=== PATIENT | female | born 1940 | race Caucasian/White ===

== ENCOUNTER 2021-03-13 12:01 | Inpatient (IN) | payer OTHER ==
[2021-03-13 12:52] LABS: EPITHELIAL CELLS FEW /hpf
[2021-03-13] MEDS ORDERED: LABETALOL HCL 5 MG/1 ML (100MG/20 ML VIAL) IVPUSH ONE (12:53)
[2021-03-13 13:06] LABS: BASO % 0.9 % (0-2.0); EOS % 1.1 % (0-4.5); HEMATOCRIT 38.2 % (32.4-45.2); HEMOGLOBIN 12.9 GM/dl (10.7-15.3); LYMPH % 17.3 % (8-40); MCH 29.6 pg (25.7-33.7); MCHC 33.7 g/dl (32.0-36.0); MEAN CELL VOLUME 88.1 fl (80-96); MEAN PLT VOLUME 9.1 fl (7.5-11.1); MONO % 7.2 % (3.8-10.2); NEUT % 73.5 % (42.8-82.8); PLATELET COUNT 262 K/MM3 (134-434); RBC 4.34 M/mm3 (3.60-5.2); RDW 12.9 % (11.6-15.6); WHITE BLOOD COUNT 5.4 K/mm3 (4.0-10.8)
[2021-03-13 13:13] LABS: ACTIVATED PTT 25.2 SECONDS (25.2-36.5)
[2021-03-13 13:17] LABS: INR 1.14 (0.82-1.09); PROTHROMBIN TIME (PATIENT) 12.7 SEC (10.2-13.0)
[2021-03-13] MEDS ORDERED: LABETALOL HCL 5 MG/1 ML (100MG/20 ML VIAL) ONE (14:15)
[2021-03-13 14:58] LABS: ALBUMIN 4.1 g/dl (3.4-5.0); ALK PHOS 75 U/L (45-117); ANION GAP 14 MMOL/L (8-16); BILIRUBIN,TOTAL 0.9 mg/dl (0.2-1); CHLORIDE 101 mmol/L (98-107); CO2 27 mmol/L (21-32); CREATININE 1.4 mg/dl (0.55-1.3); GLUCOSE,RANDOM 104 mg/dl (74-106); SGOT/AST 20 U/L (15-37); SGPT/ALT 13 U/L (13-61); SODIUM 142 mmol/L (136-145); TOT PROT 7.9 g/dl (6.4-8.2)
[2021-03-13] MEDS ORDERED: FUROSEMIDE 40 MG/4 ML INJECTABLE VIAL IVPUSH ONE (15:25)
[2021-03-13] MEDS ORDERED: FUROSEMIDE 40 MG/4 ML INJECTABLE VIAL ONE (15:31)
[2021-03-13 15:41] LABS: N-TERMINAL BNP 1487.1 pg/ml (5-450)
[2021-03-13] MEDS ORDERED: POTASSIUM CHLORIDE TABS 20 MEQ TABLET.ER (FP) PO ONE ×2 (15:51→16:38)
[2021-03-13 19:24] VITALS: BMI 21.6
[2021-03-14 08:11] LABS: BASO % 0.3 % (0-2.0); HEMATOCRIT 36.6 % (32.4-45.2); MCHC 32.8 g/dl (32.0-36.0); MEAN CELL VOLUME 88.5 fl (80-96); MEAN PLT VOLUME 8.7 fl (7.5-11.1); MONO % 7.9 % (3.8-10.2); NEUT % 74.8 % (42.8-82.8); PLATELET COUNT 263 K/MM3 (134-434); RBC 4.14 M/mm3 (3.60-5.2); RDW 12.9 % (11.6-15.6); WHITE BLOOD COUNT 5.1 K/mm3 (4.0-10.8)
[2021-03-14 08:23] LABS: ALBUMIN 3.6 g/dl (3.4-5.0); BILIRUBIN,TOTAL 0.9 mg/dl (0.2-1); CALCIUM 9.8 mg/dl (8.5-10); CREATININE 1.4 mg/dl (0.55-1.3)
[2021-03-14] MEDS ORDERED: LISINOPRIL 10 MG TABLET PO SCH (10:45)
[2021-03-14] MEDS: POTASSIUM CHLORIDE TABS 20 MEQ TABLET.ER (FP) PO SCH ×2 (10:48→17:13)
[2021-03-14] MEDS ORDERED: METOPROLOL TARTRATE 5 MG/5 ML VIAL IVPUSH PRN (18:00)
[2021-03-14] MEDS: HEPARIN NA (PORCINE) 5,000 UNITS/ML 1ML VIAL SQ SCH (21:36)
[2021-03-15] MEDS: HEPARIN NA (PORCINE) 5,000 UNITS/ML 1ML VIAL SQ SCH ×3 (06:21→21:53)
[2021-03-15 07:58] LABS: BASO % 0.7 % (0-2.0); EOS % 3.5 % (0-4.5); HEMOGLOBIN 12.5 GM/dl (10.7-15.3); LYMPH % 17.3 % (8-40); MCH 30.3 pg (25.7-33.7); MCHC 33.9 g/dl (32.0-36.0); MEAN CELL VOLUME 89.4 fl (80-96); NEUT % 71.5 % (42.8-82.8); PLATELET COUNT 242 K/MM3 (134-434); RBC 4.14 M/mm3 (3.60-5.2); RDW 12.9 % (11.6-15.6); WHITE BLOOD COUNT 5.5 K/mm3 (4.0-10.8)
[2021-03-15 08:02] LABS: ALBUMIN 3.7 g/dl (3.4-5.0); BILIRUBIN,TOTAL 0.8 mg/dl (0.2-1); CALCIUM 9.7 mg/dl (8.5-10); CREATININE 1.6 mg/dl (0.55-1.3); MAGNESIUM 2.2 mg/dL (1.8-2.4); TOT PROT 7.3 g/dl (6.4-8.2)
[2021-03-15] MEDS: FUROSEMIDE 40 MG/4 ML INJECTABLE VIAL IVPUSH SCH (10:56)
[2021-03-16] MEDS: HEPARIN NA (PORCINE) 5,000 UNITS/ML 1ML VIAL SQ SCH (06:13)
[2021-03-16 08:37] LABS: CALCIUM 9.6 mg/dl (8.5-10)
[2021-03-16 09:01] LABS: CREATININE 1.6 mg/dl (0.55-1.3); MAGNESIUM 2.4 mg/dL (1.8-2.4)
[2021-03-16] MEDS: FUROSEMIDE 40 MG/4 ML INJECTABLE VIAL IVPUSH SCH (09:56)
[2021-03-16 11:01] VITALS: BP 132/67; PULSE 72; TEMP 98.1
[2021-03-17] MEDS ORDERED: FUROSEMIDE 40 MG TABLET (FP) PO SCH (10:00)
== END 2021-03-16 12:31 | disposition home or self-care (01) | DRG 291 ==
LOC: FER 12:01 → FM/S 15:39
PROVIDERS: ADMIT Internal Medicine; ATTEND Nurse Practitioner Acute Care
DX: I13.0 Hypertensive heart and chronic kidney disease with heart failure and stage 1 through stage 4 chronic kidney disease, or unspecified chronic kidney disease (principal); G93.41 Metabolic encephalopathy; I50.33 Acute on chronic diastolic (congestive) heart failure; I16.1 Hypertensive emergency; I87.8 Other specified disorders of veins; E87.6 Hypokalemia; R29.6 Repeated falls; N18.9 Chronic kidney disease, unspecified; I16.0 Hypertensive urgency
CPT/HCPCS: 36415; 70450-TC; 71046-TC-FY; 72170-TC-FY; 76775-TC; 80048; 80053; 81003; 81015; 82550; 83735; 83880; 84443; 84484; 85025; 85610; 85730; 87086; 93005; 93306-TC; 93970-TC; 97116-GP; 97162-GP; 99285-25; C9803; J1644; U0003; U0005

== ENCOUNTER 2022-10-03 01:05 | Inpatient (IN) | payer OTHER ==
[2022-10-03 01:41] VITALS: BMI 18.3
[2022-10-03 02:05] LABS: VENOUS BASE EXCESS 6.1 mmol/L (-2-2); VENOUS O2 SATURATION 61.8 % (70-80); VENOUS PCO2 46.1 mmHg (38-52); VENOUS PH 7.447 (7.310-7.410)
[2022-10-03 02:07] LABS: BASO % 0.5 % (0-2.0); EOS % 0.2 % (0-4.5); HEMATOCRIT 38.1 % (32.4-45.2); HEMOGLOBIN 12.9 GM/dL (10.7-15.3); LYMPH % 6.9 % (8-40); MCH 31.5 pg (25.7-33.7); MCHC 33.8 g/dl (32.0-36.0); MEAN CELL VOLUME 93.1 fl (80-96); MEAN PLT VOLUME 9.3 fl (7.5-11.1); MONO % 5.3 % (3.8-10.2); NEUT % 87.1 % (42.8-82.8); PLATELET COUNT 296 10^3/uL (134-434); WHITE BLOOD COUNT 10.2 K/mm3 (4.0-10.0)
[2022-10-03 02:17] LABS: INR 1.03 (0.83-1.09); PROTHROMBIN TIME (PATIENT) 11.8 SEC (9.7-13.0)
[2022-10-03 02:20] LABS: ACTIVATED PTT 25.2 SECONDS (25.2-36.5)
[2022-10-03 02:28] LABS: CALCIUM 9.7 mg/dL (8.5-10.1)
[2022-10-03 02:29] LABS: ALBUMIN 3.4 g/dl (3.4-5.0); BLOOD UREA NITROGEN 27.3 mg/dL (7-18); GLUCOSE,RANDOM 122 mg/dL (74-106)
[2022-10-03 02:34] LABS: TOT PROT 8.4 g/dl (6.4-8.2)
[2022-10-03] MEDS ORDERED: ACETAMINOPHEN 1000 MG/100 ML BAG IVPB ONE (02:34)
[2022-10-03 02:35] LABS: ALK PHOS 77 U/L (45-117)
[2022-10-03 02:37] LABS: ANION GAP 7 MMOL/L (8-16); CHLORIDE 102 mmol/L (98-107); CO2 28 mmol/L (21-32); CREATININE 1.9 mg/dL (0.55-1.3); SGOT/AST 85 U/L (15-37); SGPT/ALT 24 U/L (13-61); SODIUM 137 mmol/L (136-145)
[2022-10-03] MEDS ORDERED: ACETAMINOPHEN INJECTION 100 ML IVPB ONE (02:37)
[2022-10-03 02:39] LABS: LACTIC ACID 2.1 mmol/L (0.4-2.0)
[2022-10-03] MEDS ORDERED: ASPIRIN 81 MG CHEWABLE TABLETS PO ONE (02:52)
[2022-10-03] MEDS ORDERED: SODIUM CHLORIDE 0.9% 500 ML INFUS.BAG IV ONE (02:53)
[2022-10-03] MEDS ORDERED: ASPIRIN 81 MG CHEWABLE TABLETS ONE (02:54)
[2022-10-03 03:55] LABS: EPI CELLS 22 /uL (0-25.1); HYALINE CASTS 1 /uL (0-3.1); PH,URINE 6.5 (5.0-8.0); URINE APPEARANCE CLEAR; URINE BACTERIA 96 /uL (0-1359); URINE BILIRUBIN NEGATIVE (NEGATIVE); URINE COLOR YELLOW; URINE GLUCOSE (UA) NEGATIVE (NEGATIVE); URINE KETONE TRACE (NEGATIVE); URINE LEUK ESTERASE TRACE (NEGATIVE); URINE NITRITE NEGATIVE (NEGATIVE); URINE PROTEIN 1+ (NEGATIVE); URINE RBC 23 /uL (0-23.9); URINE UROBILINOGEN 0.2 mg/dL (0.2-1.0); URINE WBC 14 /uL (0-25.8)
[2022-10-03 05:03] LABS: CHLORIDE 104 mmol/L (98-107); SODIUM 143 mmol/L (136-145)
[2022-10-03 05:04] LABS: ANION GAP 10 MMOL/L (8-16); BLOOD UREA NITROGEN 26.5 mg/dL (7-18); CALCIUM 9.7 mg/dL (8.5-10.1); CO2 30 mmol/L (21-32)
[2022-10-03 05:05] LABS: GLUCOSE,RANDOM 106 mg/dL (74-106)
[2022-10-03 05:08] LABS: CREATININE 1.6 mg/dL (0.55-1.3)
[2022-10-03] MEDS ORDERED: ACETAMINOPHEN 1000 MG/100 ML BAG IVPB PRN (06:38)
[2022-10-03] MEDS ORDERED: SODIUM CHLORIDE 1,000 ML IV SCH (06:45)
[2022-10-03 07:06] LABS: MAGNESIUM 2.6 mg/dL (1.8-2.4)
[2022-10-03 07:10] LABS: PHOSPHOROUS 2.7 mg/dL (2.5-4.9)
[2022-10-03] MEDS ORDERED: DOCUSATE SODIUM 100 MG CAPSULE (FP) PO SCH (10:00)
[2022-10-03] MEDS ORDERED: amLODIPine BESYLATE 5 MG TABLET (FP) PO SCH (10:15)
[2022-10-03] MEDS ORDERED: amLODIPine BESYLATE 5 MG TABLET (FP) ONE (10:23)
[2022-10-03] MEDS ORDERED: ONDANSETRON 4 MG/2 ML VIAL IVPUSH PRN ×2 (19:37→22:08)
[2022-10-03] MEDS ORDERED: FENTANYL CITRATE/PF 50 MCG/ML VIAL IVPUSH PRN ×2 (19:37→22:08)
[2022-10-03] MEDS ORDERED: PROPOFOL 20 ML ONE (19:47)
[2022-10-03] MEDS ORDERED: ONDANSETRON 4 MG/2 ML VIAL ONE (19:48)
[2022-10-03] MEDS ORDERED: ceFAZolin SODIUM 1 GM VIAL ONE (19:48)
[2022-10-03] MEDS ORDERED: BUPIVACAINE HCL/PF 0.5% (5MG/ML) 10 ML VIAL ONE (19:54)
[2022-10-03] MEDS ORDERED: ceFAZolin SODIUM 1 GM VIAL IVPB ONE (20:14)
[2022-10-04] MEDS ORDERED: ACETAMINOPHEN 325 MG TABLET (FP) PO PRN ×2 (06:30)
[2022-10-04 07:46] LABS: HEMATOCRIT 31.6 % (32.4-45.2); HEMOGLOBIN 10.8 GM/dL (10.7-15.3); MCH 32.5 pg (25.7-33.7); MCHC 34.1 g/dl (32.0-36.0); MEAN CELL VOLUME 95.5 fl (80-96); MEAN PLT VOLUME 8.8 fl (7.5-11.1); PLATELET COUNT 235 10^3/uL (134-434); RBC 3.31 M/mm3 (3.60-5.2); RDW 13.4 % (11.6-15.6); WHITE BLOOD COUNT 10.3 K/mm3 (4.0-10.0)
[2022-10-04 08:09] LABS: CALCIUM 8.8 mg/dL (8.5-10.1)
[2022-10-04 08:10] LABS: BLOOD UREA NITROGEN 20.8 mg/dL (7-18)
[2022-10-04 08:13] LABS: CREATININE 1.4 mg/dL (0.55-1.3)
[2022-10-04 08:14] LABS: BILIRUBIN,TOTAL 0.8 mg/dL (0.2-1); TOT PROT 6.5 g/dl (6.4-8.2)
[2022-10-04 09:03] LABS: ANISOCYTOSIS 1+; MACROCYTOSIS 0
[2022-10-04] MEDS: amLODIPine BESYLATE 5 MG TABLET (FP) PO SCH (09:59)
[2022-10-04] MEDS: DOCUSATE SODIUM 100 MG CAPSULE (FP) PO SCH (09:59)
[2022-10-04] MEDS: SODIUM CHLORIDE 1,000 ML IV SCH (16:48)
[2022-10-05] MEDS: amLODIPine BESYLATE 5 MG TABLET (FP) PO SCH (11:24)
[2022-10-05] MEDS: ENOXAPARIN NA (PORCINE) 40 MG/0.4 ML DISP.SYRIN SQ SCH (11:24)
[2022-10-05] MEDS: DOCUSATE SODIUM 100 MG CAPSULE (FP) PO SCH (11:25)
[2022-10-05] MEDS: SODIUM CHLORIDE 1,000 ML IV SCH (14:56)
[2022-10-06] MEDS: SODIUM CHLORIDE 1,000 ML IV SCH ×4 (06:13→23:00)
[2022-10-06] MEDS: CEFAZOLIN SODIUM 2 GM in DEXTROSE 5%-WATER 100 ML IVPB SCH ×2 (08:53→08:54)
[2022-10-06] MEDS: ENOXAPARIN NA (PORCINE) 40 MG/0.4 ML DISP.SYRIN SQ SCH (09:26)
[2022-10-06] MEDS: AMINO ACIDS/PROTEIN HYDROLYS 30 ML LIQUID.PKT PO SCH (09:26)
[2022-10-06] MEDS: DOCUSATE SODIUM 100 MG CAPSULE (FP) PO SCH (09:26)
[2022-10-06] MEDS: MULTIVIT-MINERALS ORAL LIQUID PO SCH (09:26)
[2022-10-06] MEDS: amLODIPine BESYLATE 5 MG TABLET (FP) PO SCH (09:26)
[2022-10-06 12:07] LABS: BLOOD UREA NITROGEN 14.3 mg/dL (7-18)
[2022-10-06 12:09] LABS: CALCIUM 8.6 mg/dL (8.5-10.1)
[2022-10-06 12:10] LABS: CREATININE 1.2 mg/dL (0.55-1.3)
[2022-10-06 12:12] LABS: BILIRUBIN,TOTAL 0.4 mg/dL (0.2-1); TOT PROT 5.4 g/dl (6.4-8.2)
[2022-10-06 12:13] LABS: BASO % 0.2 % (0-2.0); HEMATOCRIT 26.3 % (32.4-45.2); HEMOGLOBIN 8.6 GM/dL (10.7-15.3); LYMPH % 7.9 % (8-40); MCH 30.9 pg (25.7-33.7); MCHC 32.5 g/dl (32.0-36.0); MEAN CELL VOLUME 94.9 fl (80-96); MEAN PLT VOLUME 9.6 fl (7.5-11.1); MONO % 5.7 % (3.8-10.2); NEUT % 85.2 % (42.8-82.8); PLATELET COUNT 210 10^3/uL (134-434); RBC 2.77 M/mm3 (3.60-5.2); RDW 13.3 % (11.6-15.6); WHITE BLOOD COUNT 7.2 K/mm3 (4.0-10.0)
[2022-10-06 12:14] LABS: ALBUMIN 2.2 g/dl (3.4-5.0)
[2022-10-06] MEDS ORDERED: POTASSIUM CHLORIDE TABS 20 MEQ TABLET.ER (FP) PO ONE (20:33)
[2022-10-07 07:56] LABS: BASO % 0.4 % (0-2.0); EOS % 2.4 % (0-4.5); HEMATOCRIT 23.6 % (32.4-45.2); HEMOGLOBIN 7.7 GM/dL (10.7-15.3); LYMPH % 12.9 % (8-40); MCH 30.8 pg (25.7-33.7); MCHC 32.7 g/dl (32.0-36.0); MEAN CELL VOLUME 94.1 fl (80-96); MEAN PLT VOLUME 9.6 fl (7.5-11.1); MONO % 6.4 % (3.8-10.2); NEUT % 77.9 % (42.8-82.8); PLATELET COUNT 218 10^3/uL (134-434); RBC 2.51 M/mm3 (3.60-5.2); RDW 13.4 % (11.6-15.6); WHITE BLOOD COUNT 5.7 K/mm3 (4.0-10.0)
[2022-10-07] MEDS: AMINO ACIDS/PROTEIN HYDROLYS 30 ML LIQUID.PKT PO SCH (08:03)
[2022-10-07 08:22] LABS: BLOOD UREA NITROGEN 14.4 mg/dL (7-18); CALCIUM 8.3 mg/dL (8.5-10.1); MAGNESIUM 1.9 mg/dL (1.8-2.4)
[2022-10-07 08:26] LABS: BILIRUBIN,TOTAL 0.5 mg/dL (0.2-1); TOT PROT 5.1 g/dl (6.4-8.2)
[2022-10-07] MEDS ORDERED: FUROSEMIDE 40 MG/4 ML INJECTABLE VIAL IVPUSH ONE (08:54)
[2022-10-07] MEDS ORDERED: IRON SUCROSE INJECTION 200 MG in SODIUM CHLORIDE 90 ML IVPB ONE (09:30)
[2022-10-07] MEDS: DOCUSATE SODIUM 100 MG CAPSULE (FP) PO SCH (09:59)
[2022-10-07] MEDS: amLODIPine BESYLATE 5 MG TABLET (FP) PO SCH (09:59)
[2022-10-07] MEDS: ENOXAPARIN NA (PORCINE) 40 MG/0.4 ML DISP.SYRIN SQ SCH (09:59)
[2022-10-07] MEDS: MULTIVIT-MINERALS ORAL LIQUID PO SCH (09:59)
[2022-10-07] MEDS ORDERED: FLU VACC QS2022-23(6MOS UP)/PF 60 MCG/0.5 ML SYRINGE IM ONE (16:45)
[2022-10-07 22:38] VITALS: RESP 18
[2022-10-08] MEDS: AMINO ACIDS/PROTEIN HYDROLYS 30 ML LIQUID.PKT PO SCH (08:11)
[2022-10-08 09:27] LABS: BASO % 0.3 % (0-2.0); EOS % 1.9 % (0-4.5); HEMATOCRIT 36.9 % (32.4-45.2); HEMOGLOBIN 12.4 GM/dL (10.7-15.3); LYMPH % 11.3 % (8-40); MCH 30.2 pg (25.7-33.7); MCHC 33.6 g/dl (32.0-36.0); MEAN CELL VOLUME 89.8 fl (80-96); MEAN PLT VOLUME 8.7 fl (7.5-11.1); MONO % 6.4 % (3.8-10.2); NEUT % 80.1 % (42.8-82.8); PLATELET COUNT 324 10^3/uL (134-434); RBC 4.11 M/mm3 (3.60-5.2); RDW 14.7 % (11.6-15.6); WHITE BLOOD COUNT 7.1 K/mm3 (4.0-10.0)
[2022-10-08 09:52] VITALS: BP 139/77; PULSE 76; TEMP 98.1
[2022-10-08] MEDS: DOCUSATE SODIUM 100 MG CAPSULE (FP) PO SCH (09:55)
[2022-10-08] MEDS: amLODIPine BESYLATE 5 MG TABLET (FP) PO SCH (09:55)
[2022-10-08] MEDS: ENOXAPARIN NA (PORCINE) 40 MG/0.4 ML DISP.SYRIN SQ SCH (09:55)
[2022-10-08] MEDS: MULTIVIT-MINERALS ORAL LIQUID PO SCH (09:56)
[2022-10-08] MEDS ORDERED: PNEUMOC 20-VAL CONJ-DIP CRM/PF 0.5 ML SYRINGE IM ONE (12:00)
== END 2022-10-08 11:10 | DRG 522 ==
LOC: JER 01:05 → JERBED 05:52 → J4W 23:17
PROVIDERS: ADMIT Internal Medicine; ATTEND Family Medicine
PROC: 30233N1 Transfusion of Nonautologous Red Blood Cells into Peripheral Vein, Percutaneous Approach (ICD-10-PCS; 2022-10-03)
PROC: 0SRR0J9 Replacement of Right Hip Joint, Femoral Surface with Synthetic Substitute, Cemented, Open Approach (ICD-10-PCS; principal; 2022-10-03 17:30)
DX: S72.001A Fracture of unspecified part of neck of right femur, initial encounter for closed fracture (principal); E87.20 Acidosis, unspecified; N17.9 Acute kidney failure, unspecified; I13.0 Hypertensive heart and chronic kidney disease with heart failure and stage 1 through stage 4 chronic kidney disease, or unspecified chronic kidney disease; I50.32 Chronic diastolic (congestive) heart failure; E87.0 Hyperosmolality and hypernatremia; F03.90 Unspecified dementia, unspecified severity, without behavioral disturbance, psychotic disturbance, mood disturbance, and anxiety; R77.8 Other specified abnormalities of plasma proteins; D64.9 Anemia, unspecified; R29.6 Repeated falls; Z86.73 Personal history of transient ischemic attack (TIA), and cerebral infarction without residual deficits; W18.39XA Other fall on same level, initial encounter; Y92.098 Other place in other non-institutional residence as the place of occurrence of the external cause; N18.9 Chronic kidney disease, unspecified
CPT/HCPCS: 0241U-QW; 36415; 36430; 70450-TC; 71045-TC-FY; 72125-TC; 72170-TC-FY; 73502-TC-RT-FY; 73552-TC-RT-FY; 73700-TC-RT; 80048; 80053; 81003; 82553; 82728; 82803; 82962; 83540; 83550; 83605; 83735; 84100; 84484; 85025; 85610; 85730; 86850; 86900; 86901; 86922; 87040; 87086; 87186; 88305-TC; 88311-TC; 93005; 93010; 93306-TC; 94010; 94760; 97116-GP; 97162-GP; 99285-25; C1776; C1889; G0008; J1756; P9058; Q2036